=== PATIENT | male | born 1950 | race Caucasian/White ===

== ENCOUNTER 2023-07-29 13:23 | Emergency (ER) | payer MEDICARE, OTHER ==
[~2023-07-29] VITALS: Ht 170.1 cm; Wt 65.8 kg
[2023-07-29] MEDS ORDERED: METFORMIN HYD1000 MG PO (13:31)
[2023-07-29] MEDS ORDERED: TAMSULOSIN HCL0.4 MG PO (13:31)
[2023-07-29] MEDS ORDERED: JANUVIA100 MG PO (13:31)
[2023-07-29] MEDS ORDERED: GLIMEPIRIDE4 M1 PO (13:31)
[2023-07-29] MEDS ORDERED: OMEPRAZOLE MAGN20 MG PO (13:31)
[2023-07-29] MEDS ORDERED: ROCKLATAN 0.022.5 ML OP (13:31)
[2023-07-29] MEDS ORDERED: ROSUVASTATIN CA20 MG PO (13:32)
[2023-07-29] MEDS ORDERED: LOSARTAN POTASS50 M1 PO (13:32)
[2023-07-29] MEDS ORDERED: Acetaminophen/Oxycodone 5 MG/325 MG TABLET PO ONE (15:40)
[2023-07-29] MEDS ORDERED: TRAMADOL HCL50 MG PO (15:42)
== END 2023-07-29 15:37 | disposition home or self-care (01) ==
LOC: ED 13:23
DX: S42.031A Displaced fracture of lateral end of right clavicle, initial encounter for closed fracture (principal); E11.9 Type 2 diabetes mellitus without complications; I10 Essential (primary) hypertension; W19.XXXA Unspecified fall, initial encounter; Y93.89 Activity, other specified; Y92.89 Other specified places as the place of occurrence of the external cause; Y99.8 Other external cause status

== ENCOUNTER → 2023-08-24 | Outpatient (CLI) | payer MEDICARE, OTHER ==
[~2023-08-24] MED LIST: GLIMEPIRIDE4 M1 PO; JANUVIA100 MG PO; LOSARTAN POTASS50 M1 PO; METFORMIN HYD1000 MG PO; OMEPRAZOLE MAGN20 MG PO; ROCKLATAN 0.022.5 ML OP; ROSUVASTATIN CA20 MG PO; TAMSULOSIN HCL0.4 MG PO; TRAMADOL HCL50 MG PO
== END | disposition home or self-care (01) ==
LOC: ORTHO 08:32
PROVIDERS: ATTEND Orthopaedic Surgery
DX: S42.031D Displaced fracture of lateral end of right clavicle, subsequent encounter for fracture with routine healing (principal); X58.XXXD Exposure to other specified factors, subsequent encounter

== ENCOUNTER → 2023-09-21 | Outpatient (CLI) | payer MEDICARE, OTHER | END | disposition home or self-care (01) | LOC: ORTHO 02:10 | PROVIDERS: ATTEND Orthopaedic Surgery | DX: S42.031D Displaced fracture of lateral end of right clavicle, subsequent encounter for fracture with routine healing (principal); X58.XXXD Exposure to other specified factors, subsequent encounter ==